=== PATIENT | female | born 1940 | race Caucasian/White ===

== ENCOUNTER 2019-03-01 08:36 | Day surgery (SDC) | payer MEDICARE, BC ==
[~2019-03-01 08:36] MED LIST: CEFAZOLIN 2 Gram 2 GM/50 ML BAG IVPB ONE; FAMOTIDINE 20MG TABLET PO ONE; MECLIZINE 25 MG TABLET PO ONE; METOCLOPRAMIDE 10 MG TABLET PO ONE; VANCOMYCIN 1GM/200ML PREMIX 1 GM/200 ML PIGGYBACK IVPB ONE
[2019-03-01] MEDS ORDERED: MIDAZOLAM HCL 2MG/2ML VIAL IV ONE (08:37)
[2019-03-01] MEDS ORDERED: 0.9 % SODIUM CHLORIDE 10 ML VIAL IVP ONE (08:37)
[2019-03-01] MEDS ORDERED: LIDOCAINE 2% MDV (20MG/ML) 20ML VIAL IV ONE (08:37)
[2019-03-01] MEDS ORDERED: PROPOFOL 10 MG/ML VIAL IV ONE (08:37)
[2019-03-01] MEDS ORDERED: TRANEXAMIC ACID 1,000 MG/10 ML ML IV ONE (08:37)
[2019-03-01] MEDS ORDERED: DEXAMETHASONE 4 MG/ML 1ML VIAL IVP ONE (08:37)
[2019-03-01] MEDS ORDERED: ROPIVACAINE HCL (NAROPIN) /PF 5MG/ML 20ML VIAL IV ONE (08:37)
[2019-03-01 09:28] LABS: ABO GROUP A; ANTIBODY SCREEN NEGATIVE (NEGATIVE); RH TYPE POSITIVE
[2019-03-01] MEDS ORDERED: RINGERS SOLUTION,LACTATED 1,000 ML IV ONE ×3 (09:30→13:11)
[2019-03-01] MEDS ORDERED: GENTAMICIN SULFATE 400 MG in 0.9 % SODIUM CHLORIDE 100ML 100 ML IV ONE (10:15)
[2019-03-01] MEDS ORDERED: BUPIVACAINE 0.5% W/EPI MPF 30 ML VIAL SQ ONE (11:50)
[2019-03-01] MEDS ORDERED: ONDANSETRON HCL IV 4 MG/2 ML VIAL IVP PRN (13:08)
[2019-03-01] MEDS ORDERED: ZOLPIDEM TARTRATE 5 MG TABLET PO PRN (13:08)
[2019-03-01] MEDS ORDERED: BISACODYL 10 MG SUPP RC PRN (13:08)
[2019-03-01] MEDS ORDERED: AL HYDROX/MAG HYDROX 30ML UD PO PRN (13:08)
[2019-03-01] MEDS ORDERED: NALOXONE 0.4 MG/1 ML VIAL IVP PRN (13:08)
[2019-03-01] MEDS ORDERED: TRAMADOL HCL 50 MG TABLET PO PRN (13:08)
[2019-03-01] MEDS ORDERED: MAGNESIUM HYDROXIDE 30 ML UDC PO PRN (13:08)
[2019-03-01] MEDS ORDERED: DIPHENHYDRAMINE HCL 25 MG CAPSULE PO PRN (13:08)
[2019-03-01] MEDS ORDERED: KETOROLAC 30 MG/ML VIAL IVP PRN ×2 (13:08)
[2019-03-01] MEDS ORDERED: ACETAMINOPHEN 325 MG TAB PO PRN (13:08)
--- NOTE | 2019-03-01 15:30 | Rehab Evaluation ---
Patient Information - Patient Information Diagnosis: R knee DJD Ordered Treatment: PT Evaluate and Treat Status: Initial Evaluation Past Medical/Surgical Hx: PAST MEDICAL/SURGICAL HISTORY Past Surgical History D AND C TUBAL LIGATION BILAT CTR TRIGGER FINGERS X'S 2 CYST BETWEEN BREAST ROSANNE THORACIC MASS REMOVED LEFT CATARACT C SCOPES EGD PMH - Respiratory Hx Respiratory Disorders Yes Hx Bronchitis Yes: IN THE PAST PMH - Cardiovascular Hx Vascular Disease Yes: WHEN HOT OUT Hx Rheumatic Fever Yes: AT AGE 11 Exercise Tolerance Good Hx of Migraines Yes: OCCULAR PMH - Neuro Hx Neurological Disorders Yes Hx Dizziness Yes Hx Headaches Yes: SINUS Hx Neuropathy OCCASSIONALLY PMH - GI Hx Gastrointestinal Disorders Yes Hx Gastroesophageal Reflux Yes: WITH SPICY FOODS PMH - Hx Genitourinary Disorders No Hx Urinary Tract Infection Yes: IN THE PAST PMH - Endocrine Hx Endocrine Disorders Yes Hx Diabetes Yes: DX'D DIET CONTROLLED PMH - Musculoskeletal Hx Musculoskeletal Disorders Yes Hx Arthritis Yes PMH - Psych Hx Psychiatric Problems Yes Hx Anxiety Yes: R/T SURGERY PMH - Hematology/Oncology Hx Blood Transfusion Reaction No
--- NOTE | 2019-03-01 15:39 | Rehab Evaluation ---
Patient Information - Patient Information Diagnosis: R knee DJD Ordered Treatment: OT Evaluate and Treat Status: Initial Evaluation Surgery: Yes Past Medical/Surgical Hx: PAST MEDICAL/SURGICAL HISTORY Past Surgical History D AND C TUBAL LIGATION BILAT CTR TRIGGER FINGERS X'S 2 CYST BETWEEN BREAST ROSANNE THORACIC MASS REMOVED LEFT CATARACT C SCOPES EGD PMH - Respiratory Hx Respiratory Disorders Yes Hx Bronchitis Yes: IN THE PAST PMH - Cardiovascular Hx Vascular Disease Yes: WHEN HOT OUT Hx Rheumatic Fever Yes: AT AGE 11 Exercise Tolerance Good Hx of Migraines Yes: OCCULAR PMH - Neuro Hx Neurological Disorders Yes Hx Dizziness Yes Hx Headaches Yes: SINUS Hx Neuropathy OCCASSIONALLY PMH - GI Hx Gastrointestinal Disorders Yes Hx Gastroesophageal Reflux Yes: WITH SPICY FOODS PMH - Hx Genitourinary Disorders No Hx Urinary Tract Infection Yes: IN THE PAST PMH - Endocrine Hx Endocrine Disorders Yes Hx Diabetes Yes: DX'D DIET CONTROLLED PMH - Musculoskeletal Hx Musculoskeletal Disorders Yes Hx Arthritis Yes PMH - Psych Hx Psychiatric Problems Yes Hx Anxiety Yes: R/T SURGERY PMH - Hematology/Oncology Hx Blood Transfusion Reaction No Premorbid Status: Detail (Prior to Sx, Pt was independent with ADLs and functional transfers. She lives with spouse in a one-level home with 8 RODOLFO and wide bilateral HRs. The bathroom is equipped with a tub/shower, shower chair, and GBs in the shower, along with a standard toilet without GBs. She has a FWW, cane, and manual w/c.) Precautions: [place], Fall, Other (FWB R LE) - Time With Patient Total Time Spent With Patient (Min): 25 (1 eval (7:35 - 8:00)) Treatment Procedures: Detail (OT eval: low complexity) Subjective Information - Subjective Information Per Patient (Ok to see per [facility] Walker. Pt agreeable to OT eval. Supine in bed upon arrival.) Objective Data - Pain Pain Present: No Pain Scale Used: Numeric (1 - 10) (0/10) - Mental Status Patient Orientation: Oriented x3 - Visual Perception Appears within normal limits for therapeutic activities - ROM Within normal limits (B UEs) - Strength/Tone Within normal limits - Coordination Appears within normal limits for therapeutic activities - Bed Mobility Independent (supine > EOB) - Transfers Independent - Balance Balance Sitting: Good Balance Standing: Good (Good balance during standing pant mgmt.) - Sensation Intact - Gait Detail (Functional mobility within bedroom with FWW and supervision for safe FWW use and hand placement progressing to MOD I.) - ADL's/IADL's Detail (OT educated Pt on adaptive technique for LB dressing, Pt demos understanding - unable to don R sock - therapist educ. Pt on sock aide, Pt demos understanding but declines sock aide reporting her spouse will assist. Therapist educates Pt on adaptive techniques for kitchen, bathroom, and home safety including safe functional TFs, Pt verbalizes understanding.) Therapy Assessment - Therapy Assessment Detail (Pt demos safety and independence with ADLs and functional TFs and demos good safety awareness, appears safe for DC home with spouse when medically ready.) Patient Education - Patient Education Teaching Topic: Equipment Use, Other (adaptive techs and home safety/home mods) Response: Return Demonstration, Verbalize Understanding Teaching Method: Discussion, Demonstration Teaching Recipient: Patient Barriers To Learning: None Problem List - Problem List Occupational Therapy Problem List: Detail (No further IP OT needs identified.) Goals - Goals Occupational Therapy Goals: No further IP OT needs/goals identified. Prognosis - Prognosis Good Plan - Plan Occupational Therapy Plan: Pt demos safety and independence with ADLs and functional TFs and demos good safety awareness, appears safe for DC home with spouse when medically ready. DC IP OT. Thank you for this referral.
[2019-03-01] MEDS ORDERED: VANCOMYCIN HCL 1 MG in 0.9 % SODIUM CHLORIDE 250ML 250 ML IVPB ONE (15:51)
[2019-03-01] MEDS ORDERED: FAMOTIDINE 20MG TABLET PO ONE (15:51)
[2019-03-01] MEDS ORDERED: MECLIZINE 25 MG TABLET PO ONE (15:51)
[2019-03-01] MEDS ORDERED: METOCLOPRAMIDE 10 MG TABLET PO ONE (15:51)
[2019-03-01] MEDS ORDERED: CEFAZOLIN 2 Gram 2 GM/50 ML BAG IVPB SCH (16:00)
[2019-03-01] MEDS: POTASSIUM CHLORIDE/D5-0.9%NACL 20 MEQ/1,000 ML BAG IV SCH (16:16)
--- NOTE | 2019-03-01 17:27 | Rehab Evaluation ---
Patient Information - Patient Information Diagnosis: R knee DJD Ordered Treatment: PT Evaluate and Treat Status: Initial Evaluation Surgery: Yes Past Medical/Surgical Hx: PAST MEDICAL/SURGICAL HISTORY Past Surgical History D AND C TUBAL LIGATION BILAT CTR TRIGGER FINGERS X'S 2 CYST BETWEEN BREAST ROSANNE THORACIC MASS REMOVED LEFT CATARACT C SCOPES EGD PMH - Respiratory Hx Respiratory Disorders Yes Hx Bronchitis Yes: IN THE PAST PMH - Cardiovascular Hx Vascular Disease Yes: WHEN HOT OUT Hx Rheumatic Fever Yes: AT AGE 11 Exercise Tolerance Good Hx of Migraines Yes: OCCULAR PMH - Neuro Hx Neurological Disorders Yes Hx Dizziness Yes Hx Headaches Yes: SINUS Hx Neuropathy OCCASSIONALLY PMH - GI Hx Gastrointestinal Disorders Yes Hx Gastroesophageal Reflux Yes: WITH SPICY FOODS PMH - Hx Genitourinary Disorders No Hx Urinary Tract Infection Yes: IN THE PAST PMH - Endocrine Hx Endocrine Disorders Yes Hx Diabetes Yes: DX'D DIET CONTROLLED PMH - Musculoskeletal Hx Musculoskeletal Disorders Yes Hx Arthritis Yes PMH - Psych Hx Psychiatric Problems Yes Hx Anxiety Yes: R/T SURGERY PMH - Hematology/Oncology Hx Blood Transfusion Reaction No Premorbid Status: Detail (The patient was independent with all mobility prior to surgery.) Social History: Detail (The patient lives spouse in a one story house with 8 steps and one reachable railing. The bathroom is equipped with a tub/shower combination , grab bars and shower chair, standard height toilet with no grab bars. The patient has a 2 wheeled walker, wheelchair and standard cane.) Precautions: [place], Fall, Other (FWB R LE) - Time With Patient Total Time Spent With Patient (Min): 30 Treatment Procedures: Detail (initial evaluation low complexity, gait training) Subjective Information - Subjective Information Per Patient (The patient had complaints of R knee pain following ambulation but did not rate pain using 0-10 pain scale.) Objective Data - Mental Status Patient Orientation: Oriented x3 - Visual Perception Appears within normal limits for therapeutic activities - ROM Not within normal limits (The patient's R knee AROM is limited s/p surgery. All other AROM is WNL.) - Strength/Tone Not within normal limits (The patient's R LE strength was not tested s/p surgery however was functional ie: patient was unable to complete a SLR. The patient's L LE strength was functional.) - Bed Mobility Independent (The patient was independent with supine to and from sit transfer and scooting up in bed.) - Transfers Independent (The patient was independent with stand to and from sit transfer and toilet transfer with use of grab bar.) - Balance Balance Sitting: Good Balance Standing: Good - Sensation Intact - Gait Detail (The patient ambulated with front wheeled walker a distance of 60 feet x 1 WBAT on the R LE with supervision for safety.) Therapy Assessment - Therapy Assessment Detail (The patient was independent with bed mobility, transfers and supervision with ambulation. Feel the patient will progress well with mobility.) Problem List - Problem List Physical Therapy Problem List: Detail (1) Decreased R knee AROM and decreased LE strength.) Goals - Goals Physical Therapy Goals: 1) The patient will be independent with TKA HEP. 2) The patient will ambulate on 8 stairs with using proper technique with supervision for safety. Prognosis - Prognosis Good Plan - Plan Physical Therapy Plan: PT for 1-2 sessions for gait training on stairs and instruction in HEP.
[2019-03-01] MEDS: [UNRECOGNIZED DRUG - OTHER] PO SCH ×2 (18:11→21:11)
[2019-03-01] MEDS: AMOXICILLIN PO SCH ×2 (18:11→21:11)
[2019-03-01] MEDS: CEFAZOLIN 2 Gram 2 GM/50 ML BAG IVPB SCH (18:11)
[2019-03-01] MEDS ORDERED: PNEUM 13-VAL/PF 0.5 ML IM ONE (19:21)
[2019-03-01] MEDS: DOCUSATE SODIUM 100 MG CAPSULE PO SCH (21:13)
[2019-03-01] MEDS: TRAMADOL HCL 50 MG TABLET PO PRN (21:13)
[2019-03-01] MEDS ORDERED: LORATADINE 10 MG TABLET PO SCH (22:00)
[2019-03-02] MEDS: POTASSIUM CHLORIDE/D5-0.9%NACL 20 MEQ/1,000 ML BAG IV SCH ×2 (00:31→09:55)
[2019-03-02] MEDS: TRAMADOL HCL 50 MG TABLET PO PRN ×3 (01:36→14:31)
[2019-03-02] MEDS: CEFAZOLIN 2 Gram 2 GM/50 ML BAG IVPB SCH ×2 (03:50→10:52)
--- NOTE | 2019-03-02 06:10 | Operative Note ---
DATE OF SURGERY: 03/01/2019 PREOPERATIVE DIAGNOSIS: End-stage arthrosis of the right knee. POSTOPERATIVE DIAGNOSIS: End-stage arthrosis of the right knee. OPERATION: Cemented right total knee arthroplasty using [employer] Nephew Kristal II components with a size 4 cobalt chrome femur, a size 3 stemmed tibia baseplate, a 9 mm lipped tibial insert, and a 32 mm all plastic patella. STAFF SURGEON: Shawn Lindsey MD ANESTHESIA: Spinal. PREPARATION: Chloraprep. INDIVIDUAL CONSIDERATIONS: None. PROCEDURE: The patient was taken to the operating room, placed supine on the operating room table. She had a successful induction of a spinal anesthetic. The right lower extremity was prepped and draped in the usual fashion. The limb was elevated and tourniquet was inflated to 250 mmHg. The patient had a midline approach to the knee. Sharp dissection carried down through skin and subcutaneous tissue. Small veins were coagulated with a Bovie. A medial arthrotomy was performed. The patella was everted and the knee was flexed. The patient had exposed bone and bone loss in the medial compartment. Fat pad was resected, ACL was sacrificed, and provisional anterior meniscectomies were performed. The capsule was released from the medial proximal tibia. The initial femoral pilot highway patrol hole was then made freehand. The intramedullary femoral cutting jig was placed. It was cut in 7.0 degrees of valgus and adjusted for rotation and secured with pins for a 10 mm resection. The initial transverse cut was then made. The skin guide was placed in the anterior and posterior pilot highway patrol holes. It was found that a size 4 would be appropriate. The anterior and posterior cuts followed by chamfer cuts were made. Osteophytes removed, and a size 4 trial was placed and found to fit well. The tibia was brought forward, and the remainder of the meniscal remnants removed with a Bovie. The extraarticular tibial cutting jig was placed. It was cut in neutral with a 3-degree AP slope. It was set for a 9 mm resection keyed off the high lateral side and secured with pins. When cutting the tibia, care was taken to preserve the PCL insertion on the tibia. After removing osteophytes, and I could fit a size 3. It was adjusted for rotation and secured with pins. With a 9 mm trial and femoral trial, there was excellent motion and stability, ligamentous balance, rotation alignment were thought to be normal. Femoral pilot highway patrol holes were impacted, and a tri-flange tibial stamp was impacted, and these trial components were removed. The patient had a thick patella and roughly 9 mm of bone was removed. I was able to fit a 32 patella. The [address] holes were drilled. The tourniquet was let down briefly to get bleeders posteriorly and then placed back up again. The knee was then thoroughly irrigated out with pulsatile Betadine and saline to remove any visual or palpable debris. Bony surfaces were then dried. A size 3 stemmed tibia baseplate was cemented into place followed by impaction of the 9 mm lipped tibial insert followed by cementing in the size 4 cobalt chrome femur followed by cementing in the 32 mm patella. The implant surfaces were compressed, excess cement was removed. After the cement had set, there was excellent motion and stability, ligamentous balance, rotation alignment, and patellofemoral tracking were normal but I did have to do a very small limited lateral release. Tourniquet was let down. Hemostasis was obtained with a Bovie. The capsule and periosteum were infiltrated with 30 mL of 0.5% Marcaine with epinephrine. The capsule was then closed with a running #2 quill, subcu was closed in layers with running 0 quill, skin was closed with dewey. The patient did receive 1 g of tranexamic acid preoperatively IV. I mixed 1 g of tranexamic acid with 30 mL of saline and this was injected into the knee through a sterile 18-gauge needle, and a sterile bulky compressive ROMI-type dressing was applied. The patient tolerated the procedure well. Needle and sponge counts were correct. Estimated blood loss was minimal, and she was taken back to recovery in good condition. There were no complications. ALEXANDER
[2019-03-02 06:56] LABS: HEMATOCRIT 38.2 % (35.0-47.0); HEMOGLOBIN 12.2 gm/dl (11.6-16.0)
[2019-03-02 07:08] LABS: BLOOD UREA NITROGEN 9 mg/dL (8-23); CREATININE 0.8 mg/dL (0.5-0.9); EST GLOMERULAR FILTRATION RATE > 60 mL/min; GLUCOSE,RANDOM 123 mg/dL (74-109)
--- NOTE | 2019-03-02 09:38 | Physical Therapy Tx Note ---
Physical Therapy Tx Note - Treatment Note Tolerated: Good Total Time Spent With Patient: 20 Physical Therapy Tx Note: Detail (Patient states right knee sore today. Patient was supine in bed upon DESIGN ENGINEERING TECHNICIAN arrival. Patient transferred supine to sit independently. Patient transferred sit to and from stand CGA x1. Patient ambulated 130 feet with wheeled walker SBA x1. Patient descended and ascended 11 steps with using walker and stairwell railing CGA x1. Patient transferred sit to supine independently. Patient performed the following exercises x10 reps each: quad sets, glut squeezes, SLR, ankle pumps, hamstring sets, and heel slides. Patient tolerated treatment well. Patient displays good understanding of stair climbing and HEP. Patient discharged from inpatient PT at this time, as all goals are met. Patient was left supine in bed with call light within nataly ch.) Physical Therapy Problem List: Detail (1) Decreased R knee AROM and decreased LE strength.) Physical Therapy Goals: 1) The patient will be independent with TKA HEP. 2) The patient will ambulate on 8 stairs with using proper technique with supervision for safety. Prognosis: Good Physical Therapy Plan: Patient discharged from inpatient PT at this time as all goals are met.
[2019-03-02] MEDS: DOCUSATE SODIUM 100 MG CAPSULE PO SCH (09:56)
[2019-03-02] MEDS ORDERED: ASCORBIC ACID 500 MG TAB PO SCH (10:00)
[2019-03-02] MEDS ORDERED: CALCIUM CARBONATE 500 MG TAB.CHEW PO SCH (10:00)
[2019-03-02] MEDS ORDERED: RIVAROXABAN 10 MG TABLET PO SCH (10:00)
[2019-03-02] MEDS ORDERED: FERROUS SULFATE 325 MG TAB PO SCH (10:00)
[2019-03-02] MEDS ORDERED: CHOLECALCIFEROL 1,000 UNIT TABLET PO SCH (10:00)
[2019-03-02] MEDS ORDERED: MULTIVITAMINS/MINERALS TABLET PO SCH (10:00)
[2019-03-02] MEDS: [UNRECOGNIZED DRUG - OTHER] PO SCH (10:46)
[2019-03-02] MEDS: AMOXICILLIN PO SCH (10:46)
== END 2019-03-02 14:45 | disposition home health service (06) ==
LOC: SUR 08:36 → MEDSURG 13:49 → SUR 03-02 14:45
PROVIDERS: ATTEND Orthopaedic Surgery
DX: M17.11 Unilateral primary osteoarthritis, right knee (principal); K21.9 Gastro-esophageal reflux disease without esophagitis; E11.9 Type 2 diabetes mellitus without complications
CPT/HCPCS: 76942; 80048; 85014; 85018; 86850; 86900; 86901; 97110; C1776; J1580; J1885; J3370; J3480; J7120

== ENCOUNTER 2019-03-30 09:06 | Day surgery (SDC) | payer MEDICARE, BC ==
[~2019-03-30 09:06] MED LIST changes: +ACETAMINOPHEN 1,000 MG/100 ML BTL IVPB ONE; -CEFAZOLIN 2 Gram 2 GM/50 ML BAG IVPB ONE; -MECLIZINE 25 MG TABLET PO ONE; +SCOPOLAMINE 1 PATCH TDSY TD ONE; -VANCOMYCIN 1GM/200ML PREMIX 1 GM/200 ML PIGGYBACK IVPB ONE
[2019-03-30] MEDS ORDERED: PROPOFOL 10 MG/ML VIAL IV ONE (09:07)
[2019-03-30] MEDS ORDERED: LIDOCAINE 2% MDV (20MG/ML) 20ML VIAL IV ONE (09:07)
[2019-03-30] MEDS ORDERED: FENTANYL PF 100MCG/2ML VIAL IV ONE (09:07)
[2019-03-30] MEDS ORDERED: METHYLPREDNISOLONE 40MG/VIAL IU ONE (09:35)
[2019-03-30] MEDS ORDERED: BUPIVACAINE 0.5% W/EPI MPF 30 ML VIAL SQ ONE (09:35)
[2019-03-30] MEDS ORDERED: RINGERS SOLUTION,LACTATED 1,000 ML IV ONE (09:45)
--- NOTE | 2019-03-30 16:10 | Operative Note ---
DATE OF SURGERY: 03/30/2019 PREOPERATIVE DIAGNOSIS: Arthrofibrosis of the right knee. POSTOPERATIVE DIAGNOSIS: Arthrofibrosis of the right knee. OPERATION: 1. Right knee manipulation. 2. Right knee injection. STAFF SURGEON: Shawn Lindsey MD ANESTHESIA: General. PREPARATION: Chloraprep. INDIVIDUAL CONSIDERATIONS: None. PROCEDURE: The patient was taken to the operating room and placed supine on the operating room table. She had a successful induction of general anesthetic. I went ahead and manipulated the knee. I had full extension and at about 70 degrees of flexion I felt resistance and I was able to easily bring her to about 130-140 degrees of flexion. I then prepped superolaterally with ChloraPrep and sterilely injected 20 mL of 0.5% Marcaine with epinephrine along with 40 mg of Depo-Medrol, and a Band-Aid was applied. She was taken back to recovery in good condition. There were no complications. ALEXANDER
== END 2019-03-30 10:10 | disposition home or self-care (01) ==
LOC: SUR 09:06
PROVIDERS: ATTEND Orthopaedic Surgery
DX: M24.661 Ankylosis, right knee (principal); K21.9 Gastro-esophageal reflux disease without esophagitis; E11.9 Type 2 diabetes mellitus without complications
CPT/HCPCS: J1030; J7120

== ENCOUNTER 2019-05-17 06:25 | Day surgery (SDC) | payer MEDICARE, BC ==
[~2019-05-17 06:25] MED LIST changes: -ACETAMINOPHEN 1,000 MG/100 ML BTL IVPB ONE; +CEFAZOLIN 2 Gram 2 GM/50 ML BAG IVPB ONE; +VANCOMYCIN 1GM/200ML PREMIX 1 GM/200 ML PIGGYBACK IVPB ONE
[2019-05-17] MEDS ORDERED: TRANEXAMIC ACID 1,000 MG/10 ML ML IV ONE ×2 (06:26)
[2019-05-17] MEDS ORDERED: DEXAMETHASONE 4 MG/ML 1ML VIAL IVP ONE (06:26)
[2019-05-17] MEDS ORDERED: 0.9 % SODIUM CHLORIDE 10 ML VIAL IVP ONE (06:26)
[2019-05-17] MEDS ORDERED: KETAMINE HCL 100MG/1ML VIAL INJ ONE (06:26)
[2019-05-17] MEDS ORDERED: PROPOFOL 10 MG/ML VIAL IV ONE (06:26)
[2019-05-17] MEDS ORDERED: MIDAZOLAM HCL 2MG/2ML VIAL IV ONE (06:26)
[2019-05-17] MEDS ORDERED: ROPIVACAINE HCL (NAROPIN) /PF 5MG/ML 20ML VIAL IV ONE (06:26)
[2019-05-17] MEDS ORDERED: RINGERS SOLUTION,LACTATED 1,000 ML IV ONE ×3 (07:10→10:11)
[2019-05-17 07:20] LABS: ABO GROUP A; ANTIBODY SCREEN NEGATIVE (NEGATIVE); RH TYPE POSITIVE
[2019-05-17] MEDS ORDERED: BUPIVACAINE 0.5% W/EPI MPF 30 ML VIAL SQ ONE (09:20)
[2019-05-17] MEDS ORDERED: AL HYDROX/MAG HYDROX 30ML UD PO PRN (10:27)
[2019-05-17] MEDS ORDERED: ACETAMINOPHEN 325 MG TAB PO PRN (10:27)
[2019-05-17] MEDS ORDERED: HYDROCODONE/APAP 10/325 TABLET PO PRN ×2 (10:27)
[2019-05-17] MEDS ORDERED: NALOXONE 0.4 MG/1 ML VIAL IVP PRN (10:27)
[2019-05-17] MEDS ORDERED: MAGNESIUM HYDROXIDE 30 ML UDC PO PRN (10:27)
[2019-05-17] MEDS ORDERED: KETOROLAC 30 MG/ML VIAL IVP PRN ×2 (10:27)
[2019-05-17] MEDS ORDERED: BISACODYL 10 MG SUPP RC PRN (10:27)
[2019-05-17] MEDS ORDERED: ZOLPIDEM TARTRATE 5 MG TABLET PO PRN (10:27)
[2019-05-17] MEDS ORDERED: DIPHENHYDRAMINE HCL 25 MG CAPSULE PO PRN (10:27)
[2019-05-17] MEDS ORDERED: HYDROMORPHONE HCL 2 MG/ML VIAL IM PRN (10:27)
[2019-05-17] MEDS ORDERED: ONDANSETRON HCL IV 4 MG/2 ML VIAL IVP PRN (10:27)
[2019-05-17] MEDS ORDERED: ACETAMINOPHEN W/ CODEINE 300MG/60MG TABLET PO PRN ×2 (10:27)
[2019-05-17] MEDS ORDERED: POTASSIUM CHLORIDE/D5-0.9%NACL 20 MEQ/1,000 ML BAG IV SCH (11:30)
[2019-05-17] MEDS ORDERED: PNEUM 13-VAL/PF 0.5 ML IM ONE (14:04)
[2019-05-17] MEDS: TRAMADOL HCL 50 MG TABLET PO PRN ×2 (14:26→19:34)
--- NOTE | 2019-05-17 14:49 | Rehab Evaluation ---
Patient Information - Patient Information Diagnosis: L knee OA Ordered Treatment: PT Evaluate and Treat Status: Initial Evaluation Surgery: Yes (L TKA) Date of Surgery: 05/17/19 Past Medical/Surgical Hx: PAST MEDICAL/SURGICAL HISTORY Past Surgical History VALDEZ RIGHT KNEE RTKA 03-01-2019 D AND C TUBAL LIGATION BILAT CTR TRIGGER FINGERS X'S 2 CYST BETWEEN BREAST ROSANNE THORACIC MASS REMOVED LEFT CATARACT C SCOPES EGD; RIGHT TOTAL KNEE 03/01/19 PMH - Respiratory Hx Respiratory Disorders Yes Hx Bronchitis Yes: IN THE PAST PMH - Cardiovascular Hx Cardiovascular Disorders Yes Hx Vascular Disease Yes: WHEN HOT OUT Hx Rheumatic Fever Yes: AT AGE 11 Exercise Tolerance Poor Hx of Migraines Yes: OCCULAR PMH - Neuro Hx Neurological Disorders Yes Hx Dizziness Yes Hx Headaches Yes: SINUS Hx Neuropathy OCCASSIONALLY PMH - GI Hx Gastrointestinal Disorders Yes Hx Gastroesophageal Reflux Yes: WITH SPICY FOODS PMH - Hx Genitourinary Disorders No Hx Bladder Problem Yes: stress incontinence Hx Urinary Tract Infection Yes: IN THE PAST Comment: no longer UTI PMH - Endocrine Hx Endocrine Disorders Yes Hx Diabetes Yes: DX'D DIET CONTROLLED Hx Thyroid Disease No PMH - Musculoskeletal Hx Musculoskeletal Disorders Yes Hx Arthritis Yes: LEFT KNEE HANDS Comment: rt knee stiff after physical therapy ,post total PMH - Psych Hx Psychiatric Problems Yes Hx Anxiety Yes: R/T SURGERY PMH - Hematology/Oncology Hx Hematology/Oncology Yes Disorders Hx Blood Transfusion Reaction No Premorbid Status: Detail (The patient was independent with mobility prior to surgery, however had difficulty bending her R knee.) Social History: Detail (The patient lives with spouse in one story house with 7 steps at the enterance and one railing. The bathroom was equipped with : tub shower combination, grab bar, shower chair, and standard toilet without grab bar. The patient has a walker with wheels and standard cane.) Precautions: [place], Fall, Other (WBAT on the L LE.) - Time With Patient Total Time Spent With Patient (Min): 30 Treatment Procedures: Detail (Initial Evalution low complexity, gait training) Subjective Information - Subjective Information Per Patient (The patient had no pain initially but complained of level 5 pain after ambulating.) Objective Data - Mental Status Patient Orientation: Oriented x3 - Visual Perception Appears within normal limits for therapeutic activities - ROM Not within normal limits (The patient's L knee is limited as to be expected s/p surgery. All other AROM is WNL.) - Strength/Tone Not within normal limits (The patient's L LE was not tested, however was functional ie: patient was able to lift L LE in and out of bed. R LE strength was not tested.) - Bed Mobility Independent (Independent with supine to and from sit transfer and scooting up in bed.) - Transfers Independent (The patient was independent with sit to and from stand transfer and toilet transfer.) - Balance Balance Sitting: Good Balance Standing: Good - Gait Detail (The paient ambulated with front wheeled walker a distance of 7 feet x 1 (to bathroom) and 50 feet x 1 with front wheeled walker WBAT on the L LE with supervision for safety.) Therapy Assessment - Therapy Assessment Detail (The patient was independent with bed mobility, transfers and required supervision for safety with ambulation. Feel the patient will progress well with mobility.) Problem List - Problem List Physical Therapy Problem List: Detail (1) Decreased L knee AROM s/p surgery 2) Decreased L LE strength s/p surgery) Goals - Goals Physical Therapy Goals: 1) The patient will ambulate on stairs with supervision for safety using proper technique. 2) The patient will be independent with TKA HEP. Plan - Plan Physical Therapy Plan: PT 1-2 sessions for ambulation on stairs and level surfaces and instruction in HEP.
--- NOTE | 2019-05-17 15:21 | Operative Note ---
DATE OF SURGERY: 05/17/2019 PREOPERATIVE DIAGNOSIS: End-stage arthrosis of the left knee. POSTOPERATIVE DIAGNOSIS: End-stage arthrosis of the left knee. OPERATION: Cemented left total knee arthroplasty using Aleman [employer] Nephew Kristal II components with a size 4 cobalt chrome femur, a size 3 stemmed tibia baseplate, a 9 mm lipped tibial insert, and a 32 mm all-plastic patella. STAFF SURGEON: Shawn Lindsey MD ANESTHESIA: Spinal. PREPARATION: Chloraprep. INDIVIDUAL CONSIDERATIONS: None. PROCEDURE: The patient was taken to the operating room, placed supine on the operating room table. She had a successful induction of a spinal anesthetic. The left lower extremity was prepped and draped in the usual fashion. The limb was elevated and tourniquet was inflated to 250 mmHg. The patient had a midline approach to the knee. Sharp dissection carried down through skin and subcutaneous tissue. Small veins were coagulated with a Bovie. A medial arthrotomy was performed. The patella was everted and the knee was flexed. The patient had exposed bone in the medial and patellofemoral compartments. Fat pad was resected, ACL was sacrificed, and provisional anterior meniscectomies were performed. The capsule was released from the medial proximal tibia. The initial femoral rotor pilot hole was then made freehand. The intramedullary femoral cutting jig was placed. It was cut in 7.0 degrees of valgus and adjusted for rotation and secured with pins for a 10 mm resection. The initial transverse cut was then made. The skin guide was placed in the anterior and posterior rotor pilot holes. It was found that a size 4 would be appropriate. The anterior and posterior cuts followed by chamfer cuts were made. Osteophytes removed, and a size 4 trial was placed and found to fit well. The tibia was brought forward, and the remainder of the meniscal remnants removed with a Bovie. The extraarticular tibial cutting jig was placed. It was cut in neutral with a 3-degree AP slope. Care was taken to adjust for rotation and flexion using the extraarticular alignment guide. It was set for a 9 mm resection keyed off the high lateral side and secured with pins. When cutting the tibia, care was taken to preserve the PCL insertion on the tibia. After making the tibial cut and removing medial osteophytes, I kept it a size 3. It was adjusted for rotation and secured with pins. With a 9 mm trial and the femoral trial, there was excellent motion and stability, ligamentous balance, and rotation alignment were thought to be normal. Femoral rotor pilot holes were impacted and the tri-flange tibial stamp was impacted, and these trial components were removed. The patient had a thick patella and roughly 9 mm of bone was removed freehand. I could easily fit a 32 mm diameter patella. The 3 rotor pilot holes were then drilled. The knee was then thoroughly irrigated out with pulsatile Betadine and saline to remove any visual or palpable debris. Bony surfaces were then dried. The tourniquet was let down and hemostasis was obtained with a Bovie prior. A size 3 stemmed tibia baseplate was cemented into place followed by impaction of the 9 mm lipped tibial insert followed by cementing in the size 4 cobalt chrome femur and the 32 mm patella. The implant surfaces were compressed, excess cement was removed. After the cement had set, there was excellent motion and stability, ligamentous balance, rotation alignment, and patellofemoral tracking were normal. No lateral release was required. Tourniquet was let down. Hemostasis was once again obtained with a Bovie. Thorough irrigation. The periosteum, skin, and subcu were infiltrated with 30 mL of 0.5% Marcaine with epinephrine. The capsule was then closed with a running #2 quill, subcu was closed in layers with running 0 quill, skin was closed with dewey. The patient did receive 1 g of tranexamic acid preoperatively. I mixed 1 g of tranexamic acid with 30 mL of saline. This was injected into the knee through a sterile 18-gauge needle, and a sterile bulky compressive ROMI-type dressing was applied. The patient tolerated the procedure well. Needle and sponge counts were correct. Estimated blood loss was minimal, and she was taken back to recovery in good condition. There were no complications. ALEXANDER
[2019-05-17] MEDS: CEFAZOLIN 2 Gram 2 GM/50 ML BAG IVPB SCH (16:46)
[2019-05-17] MEDS: ACETAMINOPHEN 500 MG TABLET PO PRN (16:55)
[2019-05-17] MEDS: DOCUSATE SODIUM 100 MG CAPSULE PO SCH (21:23)
[2019-05-18] MEDS: CEFAZOLIN 2 Gram 2 GM/50 ML BAG IVPB SCH ×2 (00:27→08:03)
[2019-05-18] MEDS: ACETAMINOPHEN 500 MG TABLET PO PRN ×2 (00:37→08:00)
[2019-05-18] MEDS: TRAMADOL HCL 50 MG TABLET PO PRN ×3 (04:56→12:36)
[2019-05-18 06:44] LABS: HEMATOCRIT 36.4 % (35.0-47.0); HEMOGLOBIN 11.1 gm/dl (11.6-16.0)
[2019-05-18 06:56] LABS: BLOOD UREA NITROGEN 8 mg/dL (8-23); CREATININE 0.7 mg/dL (0.5-0.9); EST GLOMERULAR FILTRATION RATE > 60 mL/min; GLUCOSE,RANDOM 104 mg/dL (74-109)
[2019-05-18] MEDS: DOCUSATE SODIUM 100 MG CAPSULE PO SCH (09:11)
[2019-05-18] MEDS ORDERED: RIVAROXABAN 10 MG TABLET PO SCH (10:00)
[2019-05-18] MEDS ORDERED: FERROUS SULFATE 325 MG TAB PO SCH (10:00)
--- NOTE | 2019-05-18 12:08 | Physical Therapy Tx Note ---
Physical Therapy Tx Note - Treatment Note Tolerated: Good Total Time Spent With Patient: 30 Physical Therapy Tx Note: Detail (The patient had complaints of L knee pain but did not rate her pain using 0-10 pain scale. The patient was independent with supine to and from sit transfer and sit to and from stand transfer. The patient ambulated with front wheeled walker a distance of 108 feet x 1 independently WBAT on L LE. The patient ambulated on stairs using folded walker and railing using proper technique with supervision for safety. The patient observed patient stair climbing and felt comfortable gaurding patient on stairs. The patient completed TKA HEP including: seated heel slides, gluteal sets, quad sets, hamstring sets, SLR and ankle pumps. The patient has met all inpt. goals and is discharged from inpatient PT.) Physical Therapy Problem List: Detail (1) Decreased L knee AROM s/p surgery 2) Decreased L LE strength s/p surgery) Physical Therapy Goals: 1) The patient will ambulate on stairs with supervision for safety using proper technique. (Goal Met). 2) The patient will be independent with TKA HEP. (Goal Met) Physical Therapy Plan: The patient has met all inpatient goals and is discharged from inpt. PT. The pt. is to receive Home PT.
--- NOTE | 2019-05-18 12:45 | Rehab Evaluation ---
Patient Information - Patient Information Diagnosis: L knee OA Ordered Treatment: OT Evaluate and Treat Status: Initial Evaluation Surgery: Yes (L TKA) Date of Surgery: 05/17/19 Past Medical/Surgical Hx: PAST MEDICAL/SURGICAL HISTORY Past Surgical History VALDEZ RIGHT KNEE RTKA 03-01-2019 D AND C TUBAL LIGATION BILAT CTR TRIGGER FINGERS X'S 2 CYST BETWEEN BREAST ROSANNE THORACIC MASS REMOVED LEFT CATARACT C SCOPES EGD; RIGHT TOTAL KNEE 03/01/19 PMH - Respiratory Hx Respiratory Disorders Yes Hx Bronchitis Yes: IN THE PAST PMH - Cardiovascular Hx Cardiovascular Disorders Yes Hx Vascular Disease Yes: WHEN HOT OUT Hx Rheumatic Fever Yes: AT AGE 11 Exercise Tolerance Poor Hx of Migraines Yes: OCCULAR PMH - Neuro Hx Neurological Disorders Yes Hx Dizziness Yes Hx Headaches Yes: SINUS Hx Neuropathy OCCASSIONALLY PMH - GI Hx Gastrointestinal Disorders Yes Hx Gastroesophageal Reflux Yes: WITH SPICY FOODS PMH - Hx Genitourinary Disorders Yes Hx Bladder Problem Yes: stress incontinence Hx Urinary Tract Infection Yes: IN THE PAST Comment: no longer UTI PMH - Endocrine Hx Endocrine Disorders Yes Hx Diabetes Yes: DX'D DIET CONTROLLED Hx Thyroid Disease No PMH - Musculoskeletal Hx Musculoskeletal Disorders Yes Hx Arthritis Yes Comment: rt knee stiff after physical therapy ,post total PMH - Psych Hx Psychiatric Problems Yes Hx Anxiety Yes: R/T SURGERY PMH - Hematology/Oncology Hx Hematology/Oncology Yes Disorders Hx Blood Transfusion Reaction No Premorbid Status: Detail (The patient was independent with mobility and meal prep prior to surgery, however had difficulty bending her R knee. Spouse was responsible for home mgmt, laundry and washing dishes.) Social History: Detail (The patient lives with spouse in one story house with 7 steps at the entrance and one railing. The bathroom was equipped with : tub shower combination, grab bar, shower chair, and standard toilet without grab bar. The patient has a walker with wheels and standard cane.) Precautions: [place], Fall, Other (WBAT on the L LE.) - Time With Patient Total Time Spent With Patient (Min): 40 Treatment Procedures: Detail (OT eval low complexity) Subjective Information - Subjective Information Per Patient, Other (spouse) Objective Data - Pain Pain Present: Yes (/) - Mental Status Patient Orientation: Oriented x3 - Visual Perception Appears within normal limits for therapeutic activities - ROM Within normal limits (Karl UE AROM WNL) - Strength/Tone Within normal limits (Karl UE strength WNL) - Coordination Appears within normal limits for therapeutic activities - Bed Mobility Independent (Ind with supine to sit and sit to supine) - Transfers Independent (Ind with sit to stand from EOB and recliner heights) - Balance Balance Sitting: Good Balance Standing: Good - Sensation Intact - Gait Detail (Pt ambulating short distances with 2 wheeled walker.) - ADL's/IADL's Detail (Pt educated re: modified LE dressing techniques. She was able to don shorts with minimal assist but did not want to attempt slip on shoes. She reports she does not wear socks and spouse will assist with all ADLs if needed. Reviewed possible adaptive equipment, modifications and safety for shower and kitchen. Pt verbalized understanding.) Therapy Assessment - Therapy Assessment Detail (Pt and spouse able to verbalize understanding of modified LE dressing techniques.) Problem List - Problem List Physical Therapy Problem List: Detail (1) Decreased L knee AROM s/p surgery 2) Decreased L LE strength s/p surgery) Occupational Therapy Problem List: Detail (No current IP OT problems identified.) Goals - Goals Physical Therapy Goals: 1) The patient will ambulate on stairs with supervision for safety using proper technique. (Goal Met). 2) The patient will be independent with TKA HEP. (Goal Met) Occupational Therapy Goals: No current IP OT goals identified. Prognosis - Prognosis Good Plan - Plan Physical Therapy Plan: The patient has met all inpatient goals and is discharged from inpt. PT. The pt. is to receive Home PT. Occupational Therapy Plan: No further IP OT recommended. Thank you for this referral.
== END 2019-05-18 13:00 | disposition home health service (06) ==
LOC: SUR 06:25 → MEDSURG 11:14 → SUR 05-18 13:00
PROVIDERS: ATTEND Orthopaedic Surgery
DX: M17.12 Unilateral primary osteoarthritis, left knee (principal); E11.9 Type 2 diabetes mellitus without complications; K21.9 Gastro-esophageal reflux disease without esophagitis; Z96.651 Presence of right artificial knee joint
CPT/HCPCS: 27447; 01402; 64447; 85018; 85014; 80048; 86900; 86901; 86850; 90670; 76942; J1885; J0690 ×2; J3490 ×2; J2795; J3370; C1776; J3480; J7120